=== PATIENT | male | born 1955 | race Caucasian/White ===

== ENCOUNTER 2020-06-10 10:54 | Outpatient (CLI) | payer OTHER, SELFPAY ==
--- NOTE | 2020-06-10 10:58 | MR_ITS ---
WS: [id number] MRI BRAIN WITH AND WITHOUT CONTRAST HISTORY: DIZZINESS;CA OF LUNG COMPARISON: None available. TECHNIQUE: Multiplanar imaging performed through the brain with MultiHance 17 ml's IV. No acute infarcts are seen. Mcintyre-white matter differentiation is well preserved. Mild atrophy. No hemorrhage or midline shift. There are small lacunar infarcts near the RIGHT centrum semiovale ovale and basal ganglia. No large territory infarct. There is mild chronic microvascular i schemic disease which is greatest within the LEFT brain. Ventricles and extra-axial spaces are normal. Clivus and pituitary gland are normal. Visualized posterior fossa and brainstem are also normal. Postcontrast images are negative for masses or vascular malformations. Dural venous sinuses are normal. Paranasal sinuses: Well aerated with no significant disease. Mastoid air cells: Small amount of fluid in the mastoid air cells, RIGHT greater than LEFT. Calvarium and scalp: Normal. MR/MR head wo/w con [id number] IMPRESSION: 1. No evidence for metastatic disease to the brain. 2. No acute infarct. 3. Mild chronic microvascular ischemic disease and prior lacunar lungs. Greate r ischemic changes involving the LEFT brain.
[2020-06-10] MEDS: gadobenate dimeglumine 20 mL vial IV (12:11)
== END 2020-06-10 10:55 | disposition home or self-care (01) ==
LOC: RADSHAW 10:57
PROVIDERS: PCP Emergency Medicine Emergency Medical Services; Visit Provider Emergency Medicine Emergency Medical Services
DX: R42 Dizziness and giddiness (principal); C34.90 Malignant neoplasm of unspecified part of unspecified bronchus or lung; I67.82 Cerebral ischemia
CPT/HCPCS: 70553; A9577

== ENCOUNTER 2020-07-26 13:56 | Outpatient (CLI) | payer OTHER, SELFPAY ==
--- NOTE | 2020-07-26 14:10 | USCV_ITS ---
Cecil Restrepo Age: 64 Gender: M : 1955 Exam Date: 07/26/2020 14:20 Ordering Phys: Marcos Marshall DO Technologist: CHOCO Exam Location: [facility] – [place] Indication: DIZZINESS Risk Factors: Previous Vascular Surgery: Right Brachial BP: / Left Brachial BP: / Right Left Velocity (cm/s) Spectral Plaque Velocity (cm/s) Spectral Plaque Syst/Diast Broadening Syst/Diast Broadening 72.80/ 14.30 Prox CCA 61.70 / 16.50 71.70/ 12.10 Mid CCA 56.20 / 14.30 47.40/ 13.20 Distal CCA 58.40 / 14.30 Homo 54.40/ 21.80 Prox ICA 181.95/ 44.25 Homo 73.00/ 26.40 Mid ICA 102.50/ 30.20 113.40/32.60 Distal ICA 102.50/ 30.20 164.70 ECA 101.40 1.58 ICA/CCA 3.50 Antegrade Vertebral Antegrade 46.60/ 14.00 cm/s 98.50/ 32.20 cm/s Tri Subclavian Tri FINDINGS Moderate to heavy heterogeneous plaques at the left bifurcation and proximal internal carotid artery. Moderate heterogeneous plaques at the right bifurcation and proximal internal carotid artery Normal thickening and minimal plaques in the common carotid arteries bilaterally. Antegrade flow in the vertebral arteries bilaterally. Normal Doppler flow velocities in the subclavian arteries bilaterally CONCLUSIONS Moderate to heavy heterogeneous plaques at the left bifurcation and proximal internal carotid artery with Doppler features consistent with 50 to 69% stenosis. Moderate heterogeneous plaques at the right bifurcation and proximal internal carotid artery with Doppler features consistent with less than 50% stenosis. No significant stenosis in the vertebral or subclavian arteries, based on the above findings. Dr Chelsi Alan MD [facility] (Electronically Signed) Final Date: 26 July 2020 19:05 S
--- NOTE | 2020-07-26 14:41 | USCV_ITS ---
Cecil Restrepo Age: 64 Gender: M : 1955 Exam Date: 07/26/2020 14:45 Ordering Phys: Marcos Marshall DO Technologist: CHOCO [place] [facility] [facility] [place]ication: SCREENING HISTORY: Diameter (cm) AP x Transverse x Length Velocity (cm/s) Waveform Prox Aorta: 2.47 x 2.50 x 2.48 33.30 Mid Aorta: 2.37 x 2.71 x 2.58 29.80 Distal Aorta: 2.45 x 2.50 x 2.48 49.90 Right Iliac Prox: 1.65 x 1.53 x 26.30 Left Iliac Prox: 1.17 x 1.18 x 22.20 Stent Prox Landing x x Aneurysmal Sac Max x x Lt Lat Sac Dim Rt Lat Sac Dim Stent Dist Landing x x Right Iliac Stent x x Left Iliac Stent x x Right Renal Art Left Renal Art FINDINGS: Normal abdominal aortic dimensions Slightly ectatic right proximal common iliac artery Normal Doppler flow velocity CONCLUSIONS Normal abdominal aortic dimensions with no evidence of aneurysm Slightly ectatic right common iliac artery. Normal Doppler flow velocities in the abdominal aorta and proximal common iliac arteries with no evidence of stenosis Dr Chelsi Alan MD [facility] (Electronically Signed) Final Date: 26 July 2020 16:44 S
== END 2020-07-26 13:57 | disposition home or self-care (01) ==
LOC: RAD 13:58
PROVIDERS: PCP Emergency Medicine Emergency Medical Services; Visit Provider Emergency Medicine Emergency Medical Services
DX: Z13.6 Encounter for screening for cardiovascular disorders (principal); R42 Dizziness and giddiness; I65.23 Occlusion and stenosis of bilateral carotid arteries
CPT/HCPCS: 76706; 93880

== ENCOUNTER 2020-10-31 09:01 | Outpatient (CLI) | payer OTHER, SELFPAY ==
--- NOTE | 2020-10-31 09:15 | NM_ITS ---
WS: [id number] NUCLEAR MEDICINE BONE SCAN Radiopharmaceutical: 26.1 Tc-99m MDP mCi IV Injection site: antecubital Postinjection imaging delay: 1 hr CLINICAL INFORMATION: LUNG CANCER COMPARISON: None. FINDINGS: Bone lesions: There are no osseous lesions suspicious for metastatic disease. No abnormal rib uptake. Soft tissue contours: Normal. Kidneys: Normal. Other findings: Degenerative type uptake in both shoulders. NM/NM bone scan whole body* [id number] IMPRESSION: No evidence of osseous metastatic disease.
== END 2020-10-31 09:02 | disposition home or self-care (01) ==
PROVIDERS: PCP Emergency Medicine Emergency Medical Services; Visit Provider Emergency Medicine Emergency Medical Services
DX: C34.90 Malignant neoplasm of unspecified part of unspecified bronchus or lung (principal)
CPT/HCPCS: 78306; A9561

== ENCOUNTER → 2020-11-14 10:03 | Outpatient (BNVA) | payer OTHER, SELFPAY | PROVIDERS: PCP Emergency Medicine Emergency Medical Services; Visit Provider Surgery | DX: Z20.822 Contact with and (suspected) exposure to COVID-19 (principal); D64.9 Anemia, unspecified | CPT/HCPCS: 87635 ==

== ENCOUNTER 2020-11-18 10:27 | Day surgery (SDC) | payer OTHER, SELFPAY ==
[2020-11-16 14:00] VITALS: BMI 21.6
[2020-11-18 10:55] VITALS: BP 128/80; PULSE 91; RESP 16; TEMP 36.1; O2SAT 96
[2020-11-18] MEDS: sodium chloride 0.9% 1,000 ML 30 ML IV (11:31)
--- NOTE | 2020-11-18 11:36 | W.PM.OPSUD ---
Surgery/Procedure H&P Update DATE OF PROCEDURE: November 18, 2020 DATE H&P PERFORMED: 11/07/20 H&P UPDATE INFORMATION: I have reviewed H&P completed within last 30 days, I have examined patient prior to procedure and No changes to prior documentation PREOP DIAGNOSIS: Iron deficiency anemia PRIMARY INDICATION FOR PROCEDURE: The same PLANNED PROCEDURE: Operation Date: 11/18/20 12:00 Proposed Procedures p EGD/colon [id number] D50.9(Not Applicable) - Silviano Jones MD s Colonoscopy(Not Applicable) - Silviano Jones MD
--- NOTE | 2020-11-18 11:54 | ANES.PREANE2 ---
Pre-Anesthetic Assessment Pre-Anesthetic Assessment: Height/Weight: Height 1.73 m Weight 64.41 kg Temp Pulse Resp BP Pulse Ox 97.0 F L 91 16 128/80 96 11/18/20 10:55 11/18/20 10:55 11/18/20 10:55 11/18/20 10:55 11/18/20 10:55 Preop Diagnosis: Iron deficiency anemia Proposed Procedure: Operation Date: 11/18/20 12:00 Proposed Procedures p EGD/colon [id number] D50.9(Not Applicable) - Silviano Jones MD s Colonoscopy(Not Applicable) - Silviano Jones MD Was Beta Ebenezer taken within 24 hours: N/A Was Clonidine taken within 24 hours: N/A Last intake: Intake Last Liquid Date 11/17/20 Last Liquid Time 23:30 Last Solid Date 11/17/20 Last Solid Time 08:00 Social: Social History: Tobacco and No alcohol Exam: Pre-Anes Outpt Exam: alert, oriented x 3 and regular rate & rhythm Additional Exam Findings (including area of procedure): rhonchi Airway: Submandibular: WNL Cervical ROM: WNL MP: 2 Dentition: False Pulmonary: Pulmonary: COPD CV/HEM: CV/HEM: Anemia, CAD (stent) and HTN Musc/skel: Musc/skel: Weakness Anesthetic Plan: ASA status: 3 Anesthesia: MAC Risk of > 500 ml blood loss (7ml/kg in children): No Meds/Allergies Current Medications: Current Medications Generic Name Dose Route Start Last Admin Trade Name Freq PRN Reason Stop Dose Admin Sodium Chloride 1,000 mls @ 30 ml s/hr 11/18/20 10:45 11/18/20 11:31 Sodium Chloride 0.9% IV 30 mls/hr .Q24H MARY Administration PFSH Anesthesia PFSH: Medical History Iron deficiency anemia Social History Smoking and tobacco status: current every day smoker Data Anesthesia Cardiac Studies: No Data to Display
[2020-11-18 12:22] VITALS: BP 104/56; PULSE 65; RESP 16; TEMP 36.1; O2SAT 98
[2020-11-18 12:40] VITALS: BP 103/68; PULSE 67; RESP 16; O2SAT 95
--- NOTE | 2020-11-18 13:19 | PC.NURSE ---
Pt and family educated on post-dx. Instructed that new meds have been sent to pharmacy. Follow-up apt date and time provided.
--- NOTE | 2020-11-18 13:20 | ANE.PACU2 ---
Inpatient post-anesthesia follow up: Airway intact: Yes Vital signs: Temperature 97 F Pulse Rate 67 Respiratory Rate 16 Blood Pressure 103/68 Pulse Oximetry 95 Oxygen Delivery Me thod Room Air Oxygen Flow Rate Fraction of Inspir ed Oxygen Hydration adequate: Yes Nausea and vomiting: No Pain level: 1 Mental status: Baseline
[2020-11-19 10:30] LABS: H. Pylori / CLO Test Positive
== END 2020-11-18 13:20 | disposition home or self-care (01) ==
PROVIDERS: PCP Emergency Medicine Emergency Medical Services; Visit Provider Surgery
PROC: 0DJ08ZZ Inspection of Upper Intestinal Tract, Via Natural or Artificial Opening Endoscopic (ICD-10-PCS; CPT 43235; principal; 2020-11-18 12:00)
PROC: 0DJD8ZZ Inspection of Lower Intestinal Tract, Via Natural or Artificial Opening Endoscopic (ICD-10-PCS; CPT 45378; 2020-11-18 12:00)
DX: D50.9 Iron deficiency anemia, unspecified (principal); K29.70 Gastritis, unspecified, without bleeding; K29.80 Duodenitis without bleeding; K26.3 Acute duodenal ulcer without hemorrhage or perforation; J44.9 Chronic obstructive pulmonary disease, unspecified; I25.10 Atherosclerotic heart disease of native coronary artery without angina pectoris; Z95.5 Presence of coronary angioplasty implant and graft; I10 Essential (primary) hypertension; F17.210 Nicotine dependence, cigarettes, uncomplicated
CPT/HCPCS: 43239; 45378; 87077; 96360; J2704; J7030